=== PATIENT | male | born 1930 | race Caucasian/White ===

== ENCOUNTER 2017-07-18 19:53 | Inpatient (IN) | payer OTHER ==
[~2017-07-18] VITALS: Ht 170.2 cm; Wt 83.9 kg
[2017-07-18] MEDS ORDERED: NALBUPHINE HCL 10 MG/1ml INJECTION IV ONE ×3 (20:30→22:00)
[2017-07-18] MEDS ORDERED: SODIUM CHLORIDE 0.9% 500 ML IV ONE (20:30)
[2017-07-18] MEDS ORDERED: ONDANSETRON HCL 4 MG/2 ML VIAL IV ONE (20:30)
[2017-07-18 22:24] LABS: Basophils # (auto) 0 uL; Basophils % (auto) 0.1 % (0.0-2.0); Eosinophils # (auto) 0.1 uL; Hematocrit 36.8 % (41.0-53.0); Lymphocytes # (auto) 0.7 uL; Mean Corpuscular Hemoglobin 28.4 pg (28.0-32.0); Mean Corpuscular Hgb Conc. 32.7 g/dL (32.0-36.0); Mean Corpuscular Volume 86.9 fL (80.0-100.0); Monocytes # (auto) 0.5 uL; Monocytes % (auto) 6.8 % (0.0-12.0); Neutrophils # (auto) 5.4 uL; Neutrophils % (auto) 81.1 % (37.0-80.0); Platelet Count (auto) 110 10^3/uL (140-450); Red Blood Cells 4.24 10^6/uL (4.5-5.90); Red Cell Distribution Width 15.3 % (11.8-14.3); White Blood Cell 6.7 10^3/uL (4.4-10.8)
[2017-07-18 22:37] LABS: Prothrombin Time 10.9 sec (9.37-12.3)
[2017-07-18 22:47] LABS: Albumin 3.3 g/dL (3.4-5.0); BUN/Creatinine Ratio 21.7; Calcium 7.9 mg/dL (8.5-10.1); Potassium 4.4 mmol/L (3.5-5.1)
[2017-07-18 22:50] LABS: Bilirubin, Total 0.5 mg/dL (0.2-1.0); Total Protein 6.6 g/dL (6.4-8.2)
[2017-07-19] MEDS ORDERED: NALBUPHINE HCL 10 MG/1ml INJECTION IV ONE (00:30)
[2017-07-19] MEDS ORDERED: ACETAMINOPHEN 325 MG TAB PO PRN (00:45)
[2017-07-19] MEDS ORDERED: DOCUSATE SOD 100 MG CAP PO PRN (00:45)
[2017-07-19] MEDS ORDERED: TEMAZEPAM 15 MG CAP PO PRN (00:45)
[2017-07-19] MEDS ORDERED: ONDANSETRON HCL 4 MG/2 ML VIAL IV PRN (00:45)
[2017-07-19] MEDS ORDERED: ALBUTEROL SULF 2.5 MG/0.5ML(0.5%) NEB SOLN NEB PRN (00:45)
[2017-07-19] MEDS: MORPHINE SULFATE 4 MG/ML SYR/VIAL IV PRN ×4 (01:37→17:21)
[2017-07-19 01:38] VITALS: BP 130/69
[2017-07-19 01:45] VITALS: BP 121/60
[2017-07-19] MEDS: HYDROcodone-ACET 5/325MG TAB PO PRN ×4 (02:27→18:56)
[2017-07-19 07:30] VITALS: BP 114/55
[2017-07-19] MEDS ORDERED: ENOXAPARIN SOD 40 MG/0.4 ML SYRINGE SC SCH (10:00)
[2017-07-19] MEDS ORDERED: FAMOTIDINE 20 MG TAB PO SCH (10:00)
[2017-07-19 13:00] VITALS: BP 112/69
[2017-07-19] MEDS ORDERED: LORA1TAB12 PO (14:37)
[2017-07-19] MEDS ORDERED: OMEP20CA74 PO (14:37)
[2017-07-19] MEDS ORDERED: ROPI1TAB22 PO (14:37)
[2017-07-19] MEDS ORDERED: MONT10TA34 PO (14:37)
[2017-07-19 17:00] VITALS: BP 111/59
[2017-07-19 18:28] VITALS: BP 111/59
[2017-07-19] MEDS ORDERED: ROPINIROLE 4 MG PO SCH (22:00)
== END 2017-07-19 19:05 | disposition short-term general hospital (02) | DRG 536 ==
LOC: ER 19:53 → EDBD 19:53 → OVERFLOW 19:54 → CENTRAL 07-19 01:45
PROVIDERS: ADMIT Nurse Practitioner; ATTEND Internal Medicine Geriatric Medicine
DX: S72.142A Displaced intertrochanteric fracture of left femur, initial encounter for closed fracture (principal); F17.210 Nicotine dependence, cigarettes, uncomplicated; J45.909 Unspecified asthma, uncomplicated; W18.39XA Other fall on same level, initial encounter; G47.00 Insomnia, unspecified; K59.00 Constipation, unspecified; Y93.89 Activity, other specified; Y92.89 Other specified places as the place of occurrence of the external cause; Y99.8 Other external cause status; Z82.49 Family history of ischemic heart disease and other diseases of the circulatory system
CPT/HCPCS: 36415; 71045; 72131; 73700; 80053; 85025; 85610; 85730; 93005; 94640; 94761; 96361; 96374; 96375; 96376; J2405